=== PATIENT | male | born 2000 | race Hispanic/Latino ===

== ENCOUNTER 2020-07-20 18:35 | Emergency (ER) | payer SELFPAY ==
[2020-07-20 22:36] LABS: SARS-COV-2 RT PCR POSITIVE (NEGATIVE)
--- NOTE | 2020-07-20 22:40 | ER ---
Nurse's Notes [facility] Name: Kb Lee Age: 20 yrs Sex: Male : 2000 Arrival Date: 07/20/2020 Time: 18:37 Bed 23 Private MD: Diagnosis: Coronavirus infection, unspecified Presentation: 07/20 18:57 Chief complaint: Patient states: cough and chills that began today. PT is requesting a ss COVID test. Coronavirus screen: Client denies travel out of the [place] in the last 14 days. Ebola Screen: Patient denies exposure to infectious person. Patient denies travel to an Ebola-affected area in the 21 days before illness onset. Initial Sepsis Screen: Does the patient meet any 2 criteria? No. Patient's initial sepsis screen is negative. Does the patient have a suspected source of infection? No. Patient's initial sepsis screen is negative. Risk Assessment: Do you want to hurt yourself or someone else? Patient reports no desire to harm self or others. Onset of symptoms was July 20, 2020. 18:57 Method Of Arrival: Ambulatory 18:57 Acuity: SYLVIE 4 ss Historical: - Allergies: 18:59 No Known Allergies; ss - Home Meds: 18:59 None [Active]; ss - PMHx: 18:59 None; ss - PSHx: 18:59 None; ss - Immunization history:: Adult Immunizations up to date. - Social history:: Smoking status: Patient denies any tobacco usage or history of. Screenin:08 Abuse screen: Denies threats or abuse. Nutritional screening: No deficits noted. vg1 Tuberculosis screening: No symptoms or risk factors identified. Fall Risk None identified. Assessment: 21:07 General: Appears in no apparent distress. comfortable, Behavior is calm, cooperative. vg1 General: Reports chills for 0-12 hours, feeling lightheaded. . Pain: Denies pain. Neuro: Level of Consciousness is awake, alert, obeys commands, Oriented to person, place, time, situation. Cardiovascular: Patient's skin is warm and dry. Respiratory: Airway is patent Respiratory effort is even, unlabored, Respiratory pattern is regular, symmetrical, Breath sounds are clear bilaterally. Respiratory: Reports cough that is non-productive. GI: No signs and/or symptoms were reported involving the gastrointestinal system. : No signs and/or symptoms were reported regarding the genitourinary system. EENT: No signs and/or symptoms were reported regarding the EENT system. Derm: Skin is intact, is healthy with good turgor. Musculoskeletal: Circulation, motion, and sensation intact. 22:35 Reassessment: Called Mateo in lab to get patients results and patient is Covid vg1 positive. Provider notified. 22:39 Reassessment: Patient appears in no apparent distress at this time. No changes from vg1 previously documented assessment. Patient is alert, oriented x 3, equal unlabored respirations, skin warm/dry/pink. Patient denies pain at this time. Vital Signs: 18:57 BP 140 / 86; Pulse 76; Resp 14; Temp 98.8(TE); Pulse Ox 99% on R/A; Height 5 ft. 8 in. ss (172.72 cm); Pain 0/10; 21:08 BP 131 / 89; Pulse 70; Resp 16; Pulse Ox 100% on R/A; vg1 22:00 BP 126 / 84; Pulse 68; Resp 16; Pulse Ox 98% on R/A; vg1 ED Course: 18:37 Patient arrived in ED. ag5 18:58 Triage completed. ss 18:59 Arm band placed on right wrist. ss 20:49 Babita Abraham, LEX is Primary Nurse. vg1 20:51 Gage Knight PA is PHCP. michael 20:51 Suhail Hand MD is Attending Physician. [facility] 21:08 Patient has correct armband on for positive identification. Bed in low position. Call 1 light in reach. 21:27 COVID swab sent to lab. vg1 22:47 No provider procedures requiring assistance completed. Patient did not have IV access vg1 during this emergency room visit. Administered Medications: No medications were administered Outcome: 22:39 Discharge ordered by . michael 22:47 Discharged to home ambulatory. vg1 22:47 Condition: stable 22:47 Discharge instructions given to patient, Instructed on discharge instructions, follow up and referral plans. medication usage, Demonstrated understanding of instructions, follow-up care, medications, Prescriptions given X 2. 22:47 Patient left the ED. vg1 Signatures: Gage Knight PA PA jmm Smirch, Shelby, RN RN ss Ben Sanchez ag5 Babita Abraham, RN RN vg1
--- NOTE | 2020-07-20 22:40 | EDPHYS ---
Physician Documentation [facility] Name: Kb Lee Age: 20 yrs Sex: Male : 2000 Arrival Date: 07/20/2020 Time: 18:37 Bed 23 Private MD: ED Physician Suhail Hand HPI: 07/20 22:37 This 20 yrs old Male presents to ER via Ambulatory with complaints of R/O jmm COVID. 22:37 The patient or guardian reports cough. Onset: The symptoms/episode began/occurred jmm today. Modifying factors: The symptoms are alleviated by nothing. the symptoms are aggravated by nothing. Associated signs and symptoms: Pertinent positives: rhinorrhea. This is a 20 year old male with no chronic medical conditions that presents to the ED with complaints of cough, congestion, beginning today. . Historical: - Allergies: 18:59 No Known Allergies; ss - Home Meds: 18:59 None [Active]; ss - PMHx: 18:59 None; ss - PSHx: 18:59 None; ss - Immunization history:: Adult Immunizations up to date. - Social history:: Smoking status: Patient denies any tobacco usage or history of. ROS: 22:37 Constitutional: Positive for chills. jmm 22:37 ENT: Positive for rhinorrhea. 22:37 Respiratory: Positive for cough. 22:37 All other systems are negative. Exam: 22:37 Constitutional: This is a well developed, well nourished patient who is awake, alert, jmm and in no acute distress. Head/Face: atraumatic. Eyes: EOMI, no conjunctival erythema appreciated ENT: Moist Mucus Membranes Neck: Trachea midline, Supple Chest/axilla: Normal chest wall appearance and motion. Cardiovascular: Regular rate and rhythm. No edema appreciated Respiratory: Normal respirations, no respiratory distress appreciated Abdomen/GI: Non distended, soft Back: Normal ROM Skin: General appearance color normal MS/ Extremity: Moves all extremities, no obvious deformities appreciated, no edema noted to the lower extremities Neuro: Awake and alert, normal gait Psych: Behavior is normal, Mood is normal, Patient is cooperative and pleasant Vital Signs: 18:57 BP 140 / 86; Pulse 76; Resp 14; Temp 98.8(TE); Pulse Ox 99% on R/A; Height 5 ft. 8 in. ss (172.72 cm); Pain 0/10; 21:08 BP 131 / 89; Pulse 70; Resp 16; Pulse Ox 100% on R/A; vg1 22:00 BP 126 / 84; Pulse 68; Resp 16; Pulse Ox 98% on R/A; vg1 MDM: 21:25 Patient medically screened. [facility] 22:38 Data reviewed: vital signs, nurses notes. Counseling: I had a detailed discussion with sheron the patient and/or guardian regarding: the historical points, exam findings, and any diagnostic results supporting the discharge/admit diagnosis, lab results, the need for outpatient follow up, to return to the emergency department if symptoms worsen or persist or if there are any questions or concerns that arise at home. ED course: Patient is alert and non toxic in appearance in the ED. No signs of resp distress. patient is advised to follow up with pcp and otherwise given strict return precautions. patient understood and agrees with the plan of care. . 07/20 22:36 Order name: COVID-19/FLU A+B; Complete Time: 22:41 EDMS Administered Medications: No medications were administered Disposition: 07/21 06:23 Co-signature as Attending Physician, Suhail Hand MD I agree with the assessment and tw4 plan of care. Disposition: 07/20/20 22:39 Discharged to Home. Impression: Coronavirus infection, unspecified. - Condition is Stable. - Discharge Instructions: COVID-19. - Prescriptions for Prednisone 20 mg Oral Tablet - take 3 tablet by ORAL route once daily for 5 days; 15 tablet. Albuterol Sulfate 90 mcg/actuation - inhale 1-2 puff by INHALATION route every 4-6 hours; 1 Inhaler. - Medication Reconciliation Form, Thank You Letter, Antibiotic Education, Prescription Opioid Use form. - Follow up: Private Physician; When: 2 - 3 days; Reason: Recheck today's complaints, Continuance of care, Re-evaluation by your physician. Signatures: Dispatcher [employer] EDMS Gage Knight PA PA jmm Smirch, Shelby, RN RN Suhail Denson MD MD tw4 Babita Abraham RN RN vg1 Corrections: (The following items were deleted from the chart) 07/20 21:47 21:18 Influenza Screen (A \T\ B)+[id number].[id number] ordered. EDNC EDMS 21:47 21:18 Influenza Screen (A ordered. EDNC EDMS 22:47 22:39 07/20/2020 22:39 Discharged to Home. Impression: Coronavirus infection, vg1 unspecified. Condition is Stable. Forms are Medication Reconciliation Form, Thank You Letter, Antibiotic Education, Prescription Opioid Use. Follow up: Private Physician; When: 2 - 3 days; Reason: Recheck today's complaints, Continuance of care, Re-evaluation by your physician. sheron
[2020-07-20 22:58] VITALS: TEMP 98.8
[2020-07-20 23:00] VITALS: BP 126/84; O2SAT 98
== END 2020-07-20 22:47 | disposition home or self-care (01) ==
LOC: ER 18:35
DX: U07.1 COVID-19 (principal)
CPT/HCPCS: 0240U; 99282